=== PATIENT | male | born 1990 | race American Indian/Alaskan Native ===

== ENCOUNTER 2017-12-05 18:02 | Emergency (ER) | payer MEDICAID ==
[2017-12-05 18:08] VITALS: BP 119/69; PULSE 102; RESP 16; O2SAT 98
[2017-12-05] MEDS ORDERED: Sodium Chloride 0.9% 1,000 ML IV STA (18:43)
--- NOTE | 2017-12-05 19:15 | ED PDOC ---
HPI: Abdomen Time Seen by Provider: 12/05/17 18:30 Chief Complaint (Nursing): Abdominal Pain Chief Complaint (Provider): Abdominal Pain History Per: Patient History/Exam Limitations: no limitations Onset/Duration Of Symptoms: Hrs (x3) Additional Complaint(s): Patient is a 27 y/o male who presents to the ED for evaluation of intermittent abdominal pain with associated non bloody non bilious vomiting since 17:00. Patient states he has a history of abdominal hernia and is unsure if the symptoms are related. Patient is also complaining of upper back pain that has been worsening throughout the week. He denies fall, trauma, fever, chills, diarrhea, urinary symptoms, weakness, numbness, cough, shortness of breath, or saddle anesthesia. He denies taking meds prior to arrival. PMD: None Past Medical History Reviewed: Historical Data, Nursing Documentation, Vital Signs Vital Signs: Last Vital Signs Temp 98.0 F 12/05/17 18:05 Pulse 102 H 12/05/17 18:05 Resp 16 12/05/17 18:05 BP 119/69 12/05/17 18:05 Pulse Ox 98 12/05/17 18:05 - Medical History PMH: Asthma - Surgical History Other surgeries: ORIF of right hand - Family History Family History: States: Unknown Family Hx - Social History Current smoker - smoking cessation education provided: Yes (5 cigs per day) Alcohol: None Drugs: Denies - Home Medications Home Medications: Ambulatory Orders Medication Instructions Recorded Dicyclomine [Bentyl] 20 mg PO TID PRN #21 tab 12/06/17 Ondansetron ODT [Zofran ODT] 4 mg PO Q8 PRN #10 odt 12/06/17 - Allergies Allergies/Adverse Reactions: Allergies Allergy/AdvReac Type Severity Reaction Status Date / Time chocolate flavor Allergy RASH Verified 12/05/17 23:08 mushroom Allergy RASH Verified 12/05/17 23:08 onion Allergy RASH Verified 12/05/17 23:08 PORK Allergy RASH Verified 12/05/17 23:08 bee stings Allergy SWELLING Uncoded 12/05/17 23:08 red beans Allergy RASH Uncoded 12/05/17 23:08 Review of Systems ROS Statement: Except As Marked, All Systems Reviewed And Found Negative Constitutional: Negative for: Fever, Chills Respiratory: Negative for: Cough, Shortness of Breath Gastrointestinal: Positive for: Vomiting, Abdominal Pain. Negative for: Diarrhea Genitourinary Male: Negative for: Dysuria, Frequency, Incontinence Musculoskeletal: Positive for: Back Pain Neurological: Negative for: Weakness, Numbness Physical Exam - Reviewed Nursing Documentation Reviewed: Yes Vital Signs Reviewed: Yes - Physical Exam Comments: GENERAL APPEARANCE: Patient is awake, alert, oriented x 3, is resting comfortably and in no distress. SKIN: Warm, dry; (-) cyanosis. EYES: (-) conjunctival pallor, (-) scleral icterus. ENMT: Mucous membranes moist. Airway patent, (-) stridor. NECK: Supple, FROM CHEST AND RESPIRATORY: (-) rales, (-) rhonchi, (-) wheezes; breath sounds equal bilaterally. Respirations nonlabored. HEART AND CARDIOVASCULAR: (-) irregularity ABDOMEN AND GI: Soft (-) distention. Bowel sounds active x4; (+) tenderness in RUQ, LUQ, and epigastrium. (-) guarding, (-) rebound, (-) palpable masses, (-) CVA tenderness. BACK: (+) bilateral parathoracic tenderness. (-) midline tenderness. EXTREMITIES: (-) deformity, (-) edema NEURO AND PSYCH: Mental status as above; (-) focal findings (-) facial asymmetry (-) aphasia. Gait: steady. Speech: clear. - ECG O2 Sat by Pulse Oximetry: 98 (RA) Pulse Ox Interpretation: Normal Medical Decision Making Medical Decision Making: Time: 18:32 Impression: Abdominal pain, back pain, nausea and vomiting. Plan: --IV --IVF --CBC --CMP --Lipase --Toradol IVP --Pepcid IVP --Zofran IVP --Re-evaluation 1909 Patient requesting to sign out AMA to make curfew for care home. Patient declining all tests at this time and states he will come back tomorrow morning. Patient signed AMA forms and exited ED with steady gait. Patient AAOx3 upon AMA discharge with full mental capacity to make medical decisions. This patient is choosing to leave against medical advice. The EP has personally explained to the pt that choosing to do so may result in permanent bodily harm or . The EP discussed at great length that without further evaluation and monitoring there may be un foreseen circumstances and/or deterioration causing permanent bodily harm or as a result of their choice. The pt verbalized these risks back to the physician in laymans terms. The pt is alert, oriented, and shows the mental capacity to make clear decisions regarding the pts health care at this time. The pt continues to wish to leave against medical advice. In light of the pts decision to leave AMA, the pt is aware of the importance of following up as instructed. The pt has been advised that they should return to the ED immediately if they change their mind at any time, or if their condition begins to change or worsen in any way. ----- Scribe Attestation: Documented by Rambo Franklin, acting as a scribe for Mela Dow PA-C. Provider Scribe Attestation: All medical record entries made by the Scribe were at my direction and personally dictated by me. I have reviewed the chart and agree that the record accurately reflects my personal performance of the history, physical exam, medical decision making, and the department course for this patient. I have also personally directed, reviewed, and agree with the discharge instructions and disposition. Disposition - Clinical Impression Clinical Impression: Abdominal pain, Back pain, Vomiting, Left against medical advice - Patient ED Disposition Is Patient to be Admitted: No - Disposition Referrals: [facility] [Outside] Disposition: Against Medical Advice Disposition Time: 19:10 Condition: UNKNOWN Additional Instructions: The emergency medical care you received today was directed at your acute symptoms. If you were prescribed any medication, please fill it and take as dire cted. It may take several days for your symptoms to resolve. Return to the Emergency Department if your symptoms worsen, do not improve, or if you have any other problems. Please contact your doctor in 2 days for re-evaluation and follow up / or call one of the physicians/clinics you have been referred to that are listed on the Patient Visit Information form that is included in your discharge packet. Bring any paperwork you were given at discharge with you along with any medications you are taking to your follow up visit. Our treatment cannot replace ongoing medical care by a primary care provider (PCP) outside of the emergency department. Instructions: Acute Abdomen (Belly Pain), Upper Back Pain, Nausea and Vomiting, Adult, Leaving Against Medical Advice Forms: [facility] (Surinamese) Print Language: ITALIAN
[2017-12-05 20:02] VITALS: TEMP 98
== END 2017-12-05 19:10 | disposition left against medical advice (07) ==
LOC: H.ER 18:02
DX: R10.9 Unspecified abdominal pain (principal); M54.9 Dorsalgia, unspecified; R11.10 Vomiting, unspecified

== ENCOUNTER 2017-12-05 22:56 | Emergency (ER) | payer MEDICAID ==
[2017-12-06] MEDS ORDERED: Sodium Chloride 0.9% 1,000 ML IV STA (00:15)
[2017-12-06] MEDS ORDERED: Iohexol 240 (50 ml) PO ONE (00:15)
--- NOTE | 2017-12-06 00:20 | ED PDOC ---
Addendum entered and electronically signed by Mela Dow RPA-C 12/08/17 13:54: Addendum Addendum: 12/08/17 13:53 Patient reached at [facility] . Patient advised to return to ED for further evaluation. Addendum entered and electronically signed by Mela Dow RPA-C 12/08/17 13:13: Addendum Addendum: 12/08/17 13:[address] read: Date of service: 12/06/2017 PROCEDURE: CT Abdomen and Pelvis with contrast HISTORY: left lower abdominal pain COMPARISON: None. TECHNIQUE: Contrast dose: 90 mL Omnipaque 300 Radiation dose: Total exam DLP = 200.6 mGy-cm. This CT exam was performed using one or more of the following dose reduction techniques: Automated exposure control, adjustment of the mA and/or kV according to patient size, and/or use of iterative reconstruction technique. FINDINGS: LOWER THORAX: Unremarkable. LIVER: Diffuse hepatic steatosis. No gross lesion or ductal dilatation. GALLBLADDER AND BILE DUCTS: Unremarkable. PANCREAS: Unremarkable. No gross lesion or ductal dilatation. SPLEEN: Unremarkable. ADRENALS: Unremarkable. No mass. KIDNEYS AND URETERS: Unremarkable. No hydronephrosis. No solid mass. VASCULATURE: Acute angle of the SMA relative to the aorta. Prominent left renal vein with collateral drainage via lumbar veins. No aortic aneurysm. BOWEL: Markedly dilated 2nd portion of the duodenum measuring 5.1 cm in diameter. No obstruction. No gross mural thickening. APPENDIX: Normal appendix. PERITONEUM: Unremarkable. No free fluid. No free air. LYMPH NODES: Unremarkable. No enlarged lymph nodes. BLADDER: Unremarkable. REPRODUCTIVE: Unremarkable. BONES: No acute fracture. OTHER FINDINGS: None. IMPRESSION: Markedly dilated 2nd portion of duodenum measuring 5.1 cm with extrinsic compression on the 3rd part of the duodenum secondary to narrow angle between the SMA and aorta. 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 Prominent left renal vein with collateral drainage via lumbar veins, likely also related to narrow angle between the SMA and aorta. These findings were not conveyed on the preliminary interpretation by [facility]. ER notification submitted electronically. Patient with no contact number in system. Letter will be sent to address on file however in previous ED visit patient states he was homeless, so address may be invalid. Original Note: HPI: Abdomen Time Seen by Provider: 12/06/17 00:00 Chief Complaint (Nursing): Abdominal Pain Chief Complaint (Provider): abdominal pain History Per: Patient History/Exam Limitations: no limitations Onset/Duration Of Symptoms: Days (1) Current Symptoms Are (Timing): Still Present Location Of Pain/Discomfort: LLQ Associated Symptoms: Nausea, Vomiting Additional Complaint(s): 27 y/o male presents for evaluation of left lower abdominal pain x 1 day. Associated multiple episodes of nonbilious, nonbloody vomiting. Denies fever, cough, chest pain, shortness of breath, palpitations, changes in bowel movements, urinary symptoms, testicular pain/swelling. Past Medical History Reviewed: Historical Data, Nursing Documentation, Vital Signs Vital Signs: Last Vital Signs Temp 98 F 12/05/17 23:08 Pulse 78 12/05/17 23:08 Resp 16 12/05/17 23:08 BP 122/77 12/05/17 23:08 Pulse Ox 97 12/05/17 23:08 - Medical History PMH: Asthma - Family History Family History: States: No Known Family Hx - Living Arrangements Living Arrangements: Alone (homeless) - Home Medications Home Medications: Ambulatory Orders Medication Instructions Recorded Dicyclomine [Bentyl] 20 mg PO TID PRN #21 tab 12/06/17 Ondansetron ODT [Zofran ODT] 4 mg PO Q8 PRN #10 odt 12/06/17 - Allergies Allergies/Adverse Reactions: Allergies Allergy/AdvReac Type Severity Reaction Status Date / Time chocolate flavor Allergy RASH Verified 12/05/17 23:08 mushroom Allergy RASH Verified 12/05/17 23:08 onion Allergy RASH Verified 12/05/17 23:08 PORK Allergy RASH Verified 12/05/17 23:08 bee stings Allergy SWELLING Uncoded 12/05/17 23:08 red beans Allergy RASH Uncoded 12/05/17 23:08 Review of Systems ROS Statement: Except As Marked, All Systems Reviewed And Found Negative Gastrointestinal: Positive for: Nausea, Vomiting, Abdominal Pain Musculoskeletal: Positive for: Shoulder Pain Physical Exam - Reviewed Nursing Documentation Reviewed: Yes Vital Signs Reviewed: Yes - Physical Exam Appears: Positive for: Well, Non-toxic, No Acute Distress Head Exam: Positive for: ATRAUMATIC, NORMAL INSPECTION, NORMOCEPHALIC Skin: Positive for: Normal Color Eye Exam: Positive for: Normal appearance ENT: Positive for: Normal ENT Inspection Cardiovascular/Chest: Positive for: Regular Rate, Rhythm Respiratory: Positive for: Normal Breath Sounds Gastrointestinal/Abdominal: Positive for: Bowel Sounds, Soft, Tenderness (LLQ) Back: Positive for: Normal Inspection Extremity: Positive for: Normal ROM, Capillary Refill (<2 sec b/l UE). Negative for: Tenderness, Deformity, Swelling Neurologic/Psych: Positive for: Alert, Oriented (x3) - Laboratory Results Result Diagrams: 12/06/17 00:39 12/06/17 00:39 - ECG O2 Sat by Pulse Oximetry: 97 - Progress ED Course And Treament: labs, urine, CT abd/pelvis, IV toradol, IV fluids, IV zofran USArad impression: mild apparent thicking of the sigmoid colon. Underdistenti on, spasm, versus mild colitis On re-eval, patient sleeping; upon awakening states he is feeling better. Tolerated PO Patient educated on findings, discharged with rx monica alexisyl Advised follow up PMD 2-3 days Return precautions given Patient demonstrates full understanding of discharge instructions Patient requires no further intervention in the ED and is stable for discharge at this time Disposition - Clinical Impression Clinical Impression: Abdominal pain - Patient ED Disposition Is Patient to be Admitted: No - Disposition Referrals: [facility] [Outside] Disposition: Routine/Home Disposition Time: 03:33 Condition: IMPROVED Prescriptions: Dicyclomine [Bentyl] 20 mg PO TID PRN #21 tab PRN Reason: Pain, Mild (1-3) Ondansetron ODT [Zofran ODT] 4 mg PO Q8 PRN #10 odt PRN Reason: Nausea/Vomiting Instructions: Acute Abdomen (Belly Pain)
[2017-12-06] MEDS ORDERED: Iohexol 240 (50 ml) ONE (00:24)
[2017-12-06 00:41] LABS: BASO # 0.1 K/uL (0.0-0.2); BASO % 1.3 % (0.0-2.0); EOS # 0.2 K/uL (0.0-0.7); EOS % 3.7 % (0.0-4.0); HEMOGLOBIN 13.7 g/dL (12.0-18.0); LYMPH # 2.8 K/uL (1.0-4.3); LYMPH % 49.6 % (20.0-40.0); MEAN CELL VOLUME 92.8 fl (80.0-94.0); MEAN CORPUSCULAR HEMOGLOBIN 31.9 pg (27.0-31.0); MEAN CORPUSCULAR HGB CONC 34.4 g/dL (33.0-37.0); MEAN PLATELET VOLUME 9.4 fl (7.2-11.7); MONO # 0.5 K/uL (0.0-0.8); MONO % 8.6 % (0.0-10.0); NEUT # 2.1 K/uL (1.8-7.0); NEUT % 36.8 % (50.0-75.0); NRBC % 0.2 % (0.0-0.0); RBC 4.31 Mil/uL (4.40-5.90); RED CELL DISTRIBUTION WIDTH 13.7 % (11.5-14.5); WHITE BLOOD COUNT 5.6 K/uL (4.8-10.8)
[2017-12-06 00:52] LABS: ALB/GLOB RATIO 1.3 (1.0-2.1); ALBUMIN 4.3 g/dL (3.5-5.0); ALT/SGPT 25 U/L (21-72); AST/SGOT 25 U/L (17-59); BLOOD UREA NITROGEN 11 mg/dl (9-20); CALCIUM 9.7 mg/dL (8.4-10.2); GFR NON-AFRICAN AMERICAN > 60
[2017-12-06] MEDS ORDERED: Iohexol 300 100 ML IJ ONE (02:46)
[2017-12-06] MEDS ORDERED: Sodium Chloride 0.9% 50 ML IV ONE (02:46)
[2017-12-06 04:02] LABS: BARBITURATES, UR NEGATIVE (NEGATIVE); BENZODIAZEPINES, UR NEGATIVE (NEGATIVE); OPIATES, UR NEGATIVE (NEGATIVE); PHENCYCLIDINE, UR NEGATIVE (NEGATIVE)
[2017-12-06 04:04] LABS: SQUAMOUS EPITHIAL < 1 /hpf (0-5); URINE BACTERIA RARE (<OCC); URINE BILIRUBIN NEGATIVE (NEGATIVE); URINE BLOOD NEGATIVE (NEGATIVE); URINE CLARITY SLIGHTY-CLOUDY (Clear); URINE COLOR YELLOW (YELLOW); URINE GLUCOSE (UA) NEG (Normal); URINE LEUKOCYTE ESTERASE NEG Leu/uL (Negative); URINE PROTEIN 30 mg/dL (NEGATIVE)
[2017-12-06 04:18] VITALS: BP 128/74; PULSE 69; RESP 17; TEMP 97.8; O2SAT 98
--- NOTE | 2017-12-06 10:45 | CT ---
Date of service: 12/06/2017 PROCEDURE: CT Abdomen and Pelvis with contrast HISTORY: left lower abdominal pain COMPARISON: None. TECHNIQUE: Contrast dose: 90 mL Omnipaque 300 Radiation dose: Total exam DLP = 200.6 mGy-cm. This CT exam was performed using one or more of the following dose reduction techniques: Automated exposure control, adjustment of the mA and/or kV according to patient size, and/or use of iterative reconstruction technique. FINDINGS: LOWER THORAX: Unremarkable. LIVER: Diffuse hepatic steatosis. No gross lesion or ductal dilatation. GALLBLADDER AND BILE DUCTS: Unremarkable. PANCREAS: Unremarkable. No gross lesion or ductal dilatation. SPLEEN: Unremarkable. ADRENALS: Unremarkable. No mass. KIDNEYS AND URETERS: Unremarkable. No hydronephrosis. No solid mass. VASCULATURE: Acute angle of the SMA relative to the aorta. Prominent left renal vein with collateral drainage via lumbar veins. No aortic aneurysm. BOWEL: Markedly dilated 2nd portion of the duodenum measuring 5.1 cm in diameter. No obstruction. No gross mural thickening. APPENDIX: Normal appendix. PERITONEUM: Unremarkable. No free fluid. No free air. LYMPH NODES: Unremarkable. No enlarged lymph nodes. BLADDER: Unremarkable. REPRODUCTIVE: Unremarkable. BONES: No acute fracture. OTHER FINDINGS: None. IMPRESSION: Markedly dilated 2nd portion of duodenum measuring 5.1 cm with extrinsic compression on the 3rd part of the duodenum secondary to narrow angle between the SMA and aorta. 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 Prominent left renal vein with collateral drainage via lumbar veins, likely also related to narrow angle between the SMA and aorta. These findings were not conveyed on the preliminary interpretation by [facility]. ER notification submitted electronically.
== END 2017-12-06 03:49 | disposition home or self-care (01) ==
LOC: H.ER 22:56
DX: R10.32 Left lower quadrant pain (principal); R11.2 Nausea with vomiting, unspecified
CPT/HCPCS: 74177; 80053; 80324; 80345; 80346; 80349; 80353; 80358; 80361; 81003; 83992; 85025; 96360; 99283; J1885; J2405; J7030; Q9966; Q9967

== ENCOUNTER 2017-12-09 09:49 | Emergency (ER) | payer MEDICAID ==
[2017-12-09 09:59] VITALS: O2SAT 100
[2017-12-09 10:00] VITALS: BMI 17.4
--- NOTE | 2017-12-09 10:25 | ED PDOC ---
HPI: Abdomen Chief Complaint (Provider): ABdominal pain History Per: Patient Additional Complaint(s): Pt is a 27 yo male, no PMH, presents to the ED after receiving a callback. Pt was seen and evaluated here in the ED on 12/05/17 for abdominal pain. Pt at this time reports pain continues, no nausea, vomiting, diarrhea or constipation, no fever or chills. Official CT was read as:12/08/17 13:[address] read: Date of service: 12/06/2017 PROCEDURE: CT Abdomen and Pelvis with contrast HISTORY: left lower abdominal pain COMPARISON: None. TECHNIQUE: Contrast dose: 90 mL Omnipaque 300 Radiation dose: Total exam DLP = 200.6 mGy-cm. This CT exam was performed using one or more of the following dose reduction techniques: Automated exposure control, adjustment of the mA and/or kV according to patient size, and/or use of iterative reconstruction technique. FINDINGS: LOWER THORAX: Unremarkable. LIVER: Diffuse hepatic steatosis. No gross lesion or ductal dilatation. GALLBLADDER AND BILE DUCTS: Unremarkable. PANCREAS: Unremarkable. No gross lesion or ductal dilatation. SPLEEN: Unremarkable. ADRENALS: Unremarkable. No mass. KIDNEYS AND URETERS: Unremarkable. No hydronephrosis. No solid mass. VASCULATURE: Acute angle of the SMA relative to the aorta. Prominent left renal vein with collateral drainage via lumbar veins. No aortic aneurysm. BOWEL: Markedly dilated 2nd portion of the duodenum measuring 5.1 cm in diameter. No obstruction. No gross mural thickening. APPENDIX: Normal appendix. PERITONEUM: Unremarkable. No free fluid. No free air. LYMPH NODES: Unremarkable. No enlarged lymph nodes. BLADDER: Unremarkable. REPRODUCTIVE: Unremarkable. BONES: No acute fracture. OTHER FINDINGS: None. IMPRESSION: Markedly dilated 2nd portion of duodenum measuring 5.1 cm with extrinsic compression on the 3rd part of the duodenum secondary to narrow angle between the SMA and aorta. 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 Prominent left renal vein with collateral drainage via lumbar veins, likely also related to narrow angle between the SMA and aorta. These findings were not conveyed on the preliminary interpretation by [facility]. ER notification submitted electronically. <Natalie Layne - Last Filed: 12/09/17 16:53> <Alfonso Sommers III - Last Filed: 12/11/17 13:58> Time Seen by Provider: 12/09/17 09:59 Chief Complaint (Nursing): Abdominal Pain Supervising Attending Note - Attestation: I have reviewed all pertinent clinical information: Yes <Alfonso Sommers III - Last Filed: 12/11/17 13:58> Past Medical History Reviewed: Nursing Documentation, Vital Signs Vital Signs: Last Vital Signs Temp 97.9 F 12/09/17 09:58 Pulse 70 12/09/17 09:58 Resp 18 12/09/17 09:58 BP 155/72 H 12/09/17 09:58 Pulse Ox 100 12/09/17 09:58 - Medical History PMH: Asthma, Fractures (Right hand) - Surgical History Surgical History: No Surg Hx - Family History Family History: States: No Known Family Hx - Living Arrangements Living Arrangements: Other - Social History Current smoker - smoking cessation education provided: No Alcohol: None Drugs: Cannabis <Petronella,Natalie A - Last Filed: 12/09/17 16:53> Vital Signs: Last Vital Signs Temp 98.4 F 12/09/17 16:39 Pulse 60 12/09/17 16:39 Resp 14 12/09/17 16:39 BP 113/78 12/09/17 16:39 Pulse Ox 100 12/09/17 16:57 <Alfonso Sommers III - Last Filed: 12/11/17 13:58> - Home Medications Home Medications: Ambulatory Orders Medication Instructions Recorded Dicyclomine [Bentyl] 20 mg PO TID PRN #21 tab 12/06/17 Ondansetron ODT [Zofran ODT] 4 mg PO Q8 PRN #10 odt 12/06/17 Dicyclomine [Bentyl] 10 mg PO QID PRN #10 cap 12/09/17 - Allergies Allergies/Adverse Reactions: Allergies Allergy/AdvReac Type Severity Reaction Status Date / Time chocolate flavor Allergy RASH Verified 12/05/17 23:08 mushroom Allergy RASH Verified 12/05/17 23:08 onion Allergy RASH Verified 12/05/17 23:08 PORK Allergy RASH Verified 12/05/17 23:08 bee stings Allergy SWELLING Uncoded 12/05/17 23:08 red beans Allergy RASH Uncoded 12/05/17 23:08 Review of Systems ROS Statement: Except As Marked, All Systems Reviewed And Found Negative Gastrointestinal: Positive for: Abdominal Pain <Petronella,Natalie A - Last Filed: 12/09/17 16:53> Physical Exam - Reviewed Nursing Documentation Reviewed: Yes Vital Signs Reviewed: Yes - Physical Exam Appears: Positive for: Well, Non-toxic, No Acute Distress Head Exam: Positive for: ATRAUMATIC, NORMAL INSPECTION, NORMOCEPHALIC Skin: Positive for: Normal Color, Warm, DRY Eye Exam: Positive for: EOMI, Normal appearance, PERRL ENT: Positive for: Normal ENT Inspection Neck: Positive for: Normal, Painless ROM Cardiovascular/Chest: Positive for: Regular Rate, Rhythm Respiratory: Positive for: CNT, Normal Breath Sounds Gastrointestinal/Abdominal: Positive for: Normal Exam, Soft Back: Positive for: Normal Inspection Extremity: Positive for: Normal ROM Neurologic/Psych: Positive for: Alert, Oriented <Natalie Layne Last Filed: 12/09/17 16:53> - Laboratory Results Result Diagrams: 12/09/17 11:09 12/09/17 11:09 - ECG O2 Sat by Pulse Oximetry: 100 <Natalie Layne Last Filed: 12/09/17 16:53> - Laboratory Results Result Diagrams: 12/09/17 11:09 12/09/17 11:09 <Alfonso Sommers III - Last Filed: 12/11/17 13:58> Medical Decision Making Medical Decision Making: IV access established and Pts Pain controlled with zofran and morphine diagnostics reviewed with Pt case d/w GI fellow Dr. Bryan, who advised surgical consult at this time residential sales associate presented to see and evaluate Pt at bedside. Advised pt stable for outpt follow up with GI at this time. Pt doing well on re-eval, stable for discharge at this time <Natalie Layne Last Filed: 12/09/17 16:53> Disposition - Patient ED Disposition Is Patient to be Admitted: No - Disposition Disposition: Routine/Home Disposition Time: 16:57 <Natalie Layne Last Filed: 12/09/17 16:53> <Alfonso Sommers III - Last Filed: 12/11/17 13:58> - Clinical Impression Clinical Impression: Abdominal pain, Shoulder pain - Disposition Referrals: Alfonso Palomo MD, PhD [Staff Provider] - [facility] [Outside] Condition: STABLE Prescriptions: Dicyclomine [Bentyl] 10 mg PO QID PRN #10 cap PRN Reason: Pain, Mild (1-3) Instructions: Acute Abdomen (Belly Pain), Adult (DC), Shoulder Pain (DC) Forms: [employer] [facility] (Mongolian)
[2017-12-09 11:17] LABS: HEMOGLOBIN 13.8 g/dL (12.0-18.0); MEAN CELL VOLUME 93.3 fl (80.0-94.0); RBC 4.36 Mil/uL (4.40-5.90)
[2017-12-09 11:18] LABS: BASO % 1.1 % (0.0-2.0); EOS # 0.3 K/uL (0.0-0.7); EOS % 6.3 % (0.0-4.0); LYMPH # 2.2 K/uL (1.0-4.3); MEAN CORPUSCULAR HEMOGLOBIN 31.6 pg (27.0-31.0); MEAN CORPUSCULAR HGB CONC 33.8 g/dL (33.0-37.0); MEAN PLATELET VOLUME 9.9 fl (7.2-11.7); MONO # 0.4 K/uL (0.0-0.8); MONO % 9.3 % (0.0-10.0); NEUT # 1.2 K/uL (1.8-7.0); NEUT % 29.3 % (50.0-75.0); NRBC % 0.3 % (0.0-0.0); RED CELL DISTRIBUTION WIDTH 13.8 % (11.5-14.5)
[2017-12-09 11:35] LABS: URINE BILIRUBIN NEGATIVE (NEGATIVE); URINE BLOOD NEGATIVE (NEGATIVE); URINE CLARITY CLEAR (Clear); URINE COLOR STRAW (YELLOW); URINE GLUCOSE (UA) NEG (Normal); URINE LEUKOCYTE ESTERASE NEG Leu/uL (Negative); URINE PROTEIN NEGATIVE (NEGATIVE); URINE UROBILINOGEN 0.2-1.0 mg/dL (0.2-1.0)
[2017-12-09 11:39] LABS: ALB/GLOB RATIO 1.3 (1.0-2.1); ALBUMIN 4.1 g/dL (3.5-5.0); ALT/SGPT 24 U/L (21-72); AMYLASE 100 U/L (30-110); AST/SGOT 22 U/L (17-59); BLOOD UREA NITROGEN 9 mg/dl (9-20); CALCIUM 9.4 mg/dL (8.4-10.2); GFR NON-AFRICAN AMERICAN > 60; LIPASE 65 U/L (23-300)
[2017-12-09 12:16] LABS: BARBITURATES, UR NEGATIVE (NEGATIVE); BENZODIAZEPINES, UR NEGATIVE (NEGATIVE); OPIATES, UR NEGATIVE (NEGATIVE); PHENCYCLIDINE, UR NEGATIVE (NEGATIVE)
[2017-12-09 13:25] LABS: VENOUS BLOOD GAS BASE EXCESS 0.3 mmol/L (0.0-2.0); VENOUS BLOOD GAS PCO2 42 mmHg (40-60); VENOUS BLOOD GAS PO2 56 mm/Hg (30-55); VENOUS BLOOD PH 7.39 (7.32-7.43)
--- NOTE | 2017-12-09 16:43 | RAD ---
Date of service: 12/09/2017 PROCEDURE: CHEST RADIOGRAPH, 1 VIEW HISTORY: upper chest shoulder pain COMPARISON: None available. FINDINGS: LUNGS: Clear. PLEURA: No pneumothorax or pleural fluid seen. CARDIOVASCULAR: Normal. OSSEOUS STRUCTURES: No significant abnormalities. VISUALIZED UPPER ABDOMEN: Normal. OTHER FINDINGS: None. IMPRESSION: No active disease.
--- NOTE | 2017-12-09 16:44 | RAD ---
Date of service: 12/09/2017 PROCEDURE: Radiographs of the Left Shoulder HISTORY: upper shoulder pain COMPARISON: No prior. FINDINGS: BONES: No acute fracture. JOINTS: Unremarkable. SOFT TISSUES: Normal. OTHER FINDINGS: None. IMPRESSION: No demonstrated fracture or dislocation.
[2017-12-09 16:57] VITALS: BP 113/78; PULSE 60; RESP 14; TEMP 98.4
--- NOTE | 2017-12-09 17:42 | CP.PCM.CON ---
History of Present Illness - History of Present Illness History of Present Illness: General Surgery Consult Re: possible SMA syndrome HPI: 27 M presented to the ED today after a call back yesterday afternoon due to new read about CT findings of possible SMA syndrome. Pt initially seen and evaluated here in the ED on 12/05/17 for abdominal pain. Currently, his LLQ pain improved and did not completely resolve, however, he has had this issue since his appendix was removed. Now, he is more concerned about his L shoulder pain which is described as a 10/10 with movement. Denies nausea, vomiting, diarrhea or constipation, no fever or chills. PMH: Denies PSH: Lap appendectomy, R hand ORIF FH: unknown SH: Smokes tobacco, no EtOH, no drug use (per pt) last UDS screening showed +THC, Homeless All: Denies medication allergies Meds: Denies Review of Systems - Review of Systems All systems: reviewed and no additional remarkable complaints except (as per HPI) Past Patient History - Past Social History Alcohol: None Drugs: Cannabis - PULMONARY Hx Asthma: Yes - MUSCULOSKELETAL/RHEUMATOLOGICAL Hx Fractures: Yes (Right hand) - GASTROINTESTINAL Hx Gastrointestinal Disorders: Yes Other/Comment: Hx Left inguinal hernia - PSYCHIATRIC Hx Substance Use: Yes - SURGICAL HISTORY Hx Surgeries: Yes Hx Open Reduction Internal Fixation: Yes (Right hand) Other/Comment: hand surgery - ANESTHESIA Hx Anesthesia: Yes Hx Anesthesia Reactions: No Hx Malignant Hyperthermia: No Meds Home Medications: Home Medication List Medication Instructions Recorded Confirmed Type Dicyclomine [Bentyl] 10 mg PO QID PRN #10 cap 12/09/17 Rx Allergies/Adverse Reactions: Allergies Allergy/AdvReac Type Severity Reaction Status Date / Time chocolate flavor Allergy RASH Verified 12/05/17 23:08 mushroom Allergy RASH Verified 12/05/17 23:08 onion Allergy RASH Verified 12/05/17 23:08 PORK Allergy RASH Verified 12/05/17 23:08 bee stings Allergy SWELLING Uncoded 12/05/17 23:08 red beans Allergy RASH Uncoded 12/05/17 23:08 Physical Exam - Constitutional Appears: Non-toxic, No Acute Distress - Head Exam Head Exam: ATRAUMATIC, NORMOCEPHALIC - Eye Exam Eye Exam: EOMI. absent: Scleral icterus - ENT Exam ENT Exam: Mucous Membranes Moist Additional comments: trachea midline - Neck Exam Neck exam: Positive for: Full Rom. Negative for: Tenderness - Respiratory Exam Respiratory Exam: NORMAL BREATHING PATTERN. absent: Respiratory Distress - Cardiovascular Exam Cardiovascular Exam: RRR, +S1, +S2. absent: Bradycardia, Tachycardia - GI/Abdominal Exam GI & Abdominal Exam: Soft, Tenderness (in LLQ over scar from laparoscopic appendectomy). absent: Distended, Firm, Guarding, Hernia, Rigid - Rectal Exam Rectal Exam: Deferred - Extremities Exam Extremities exam: Negative for: calf tenderness, pedal edema Additional comments: L shoulder joint pain with active ROM - Back Exam Back exam: absent: CVA tenderness (L), CVA tenderness (R) - Neurological Exam Neurological exam: Alert, Oriented x3 - Skin Skin Exam: Dry, Warm Results - Vital Signs Recent Vital Signs: Last Vital Signs Temp 98.4 F 12/09/17 16:39 Pulse 60 12/09/17 16:39 Resp 14 12/09/17 16:39 BP 113/78 12/09/17 16:39 Pulse Ox 100 12/09/17 16:57 - Labs Result Diagrams: 12/09/17 11:09 12/09/17 11:09 Labs: Laboratory Results - last 24 hr 12/09/17 12/09/17 12/09/17 11:09 11:09 11:09 WBC 4.0 L RBC 4.36 L Hgb 13.8 Hct 40.7 MCV 93.3 MCH 31.6 H MCHC 33.8 RDW 13.8 Plt Count 121 L MPV 9.9 Neut % (Auto) 29.3 L Lymph % (Auto) 54.0 H Guthrie % (Auto) 9.3 Eos % (Auto) 6.3 H Baso % (Auto) 1.1 Neut # (Auto) 1.2 L Lymph # (Auto) 2.2 Guthrie # (Auto) 0.4 Eos # (Auto) 0.3 Baso # (Auto) 0.0 pO2 VBG pH VBG pCO2 VBG HCO3 VBG Total CO2 VBG O2 Sat (Calc) VBG Base Excess VBG Potassium Glucose Lactate FiO2 Sodium 142 Potassium 4.2 Chloride 108 H Carbon Dioxide 24 Anion Gap 14 BUN 9 Creatinine 0.9 Est GFR ( Amer) > 60 Est GFR (Non-Af Amer) > 60 Random Glucose 74 L Calcium 9.4 Total Bilirubin 0.6 AST 22 ALT 24 Alkaline Phosphatase 49 Total Protein 7.3 Albumin 4.1 Globulin 3.2 Albumin/Globulin Ratio 1.3 Amylase 100 Lipase 65 Venous Blood Potassium Urine Color Urine Clarity Urine pH Ur Specific Matthews Urine Protein Urine Glucose (UA) Urine Ketones Urine Blood Urine Nitrate Urine Bilirubin Urine Urobilinogen Ur Leukocyte Esterase Urine RBC (Auto) Urine Microscopic WBC Urine Opiates Screen Negative Urine Methadone Screen Negative Ur Barbiturates Screen Negative Ur Phencyclidine Scrn Negative Ur Amphetamines Screen Negative U Benzodiazepines Scrn Negative U Oth Cocaine Metabols Negative U Cannabinoids Screen Negative 12/09/17 12/09/17 11:10 13:04 WBC RBC Hgb Hct MCV MCH MCHC RDW Plt Count MPV Neut % (Auto) Lymph % (Auto) Guthrie % (Auto) Eos % (Auto) Baso % (Auto) Neut # (Auto) Lymph # (Auto) Guthrie # (Auto) Eos # (Auto) Baso # (Auto) pO2 56 H VBG pH 7.39 VBG pCO2 42 VBG HCO3 24.9 VBG Total CO2 26.7 VBG O2 Sat (Calc) 93.5 H VBG Base Excess 0.3 VBG Potassium 4.1 Glucose 84 Lactate 0.8 FiO2 21.0 Sodium 137.0 Potassium Chloride 106.0 Carbon Dioxide Anion Gap BUN Creatinine Est GFR ( Amer) Est GFR (Non-Af Amer) Random Glucose Calcium Total Bilirubin AST ALT Alkaline Phosphatase Total Protein Albumin Globulin Albumin/Globulin Ratio Amylase Lipase Venous Blood Potassium 4.1 Urine Color Straw Urine Clarity Clear Urine pH 8.0 Ur Specific Matthews 1.006 Urine Protein Negative Urine Glucose (UA) Neg Urine Ketones Negative Urine Blood Negative Urine Nitrate Negative Urine Bilirubin Negative Urine Urobilinogen 0.2-1.0 Ur Leukocyte Esterase Neg Urine RBC (Auto) < 1 Urine Microscopic WBC < 1 Urine Opiates Screen Urine Methadone Screen Ur Barbiturates Screen Ur Phencyclidine Scrn Ur Amphetamines Screen U Benzodiazepines Scrn U Oth Cocaine Metabols U Cannabinoids Screen - Imaging and Cardiology CT scan - abdomen Status: Image reviewed by me, Report reviewed by me Assessment & Plan - Assessment and Plan (Free Text) Assessment: 27M with Hx of abdominal pain in LLQ Plan: No signs of sepsis or acute bowel issues, Pt complaining most about his L shoulder pain. No surgical intervention required at this time, will need outpatient GI workup for question of SMA syndrome Pt not interested in surgical options at this time. D/W Dr. Irvin Johnston PGY4
== END 2017-12-09 16:39 | disposition home or self-care (01) ==
LOC: H.ER 09:49
DX: R10.9 Unspecified abdominal pain (principal); M25.512 Pain in left shoulder
CPT/HCPCS: 71045; 73030; 80053; 80324; 80345; 80346; 80349; 80353; 80358; 80361; 81003; 82150; 82803; 83690; 83992; 85025; 96374; 96375; 96376; 99283; J2270; J2405

== ENCOUNTER 2018-01-10 18:15 | Emergency (ER) | payer MEDICAID ==
[2018-01-10 18:15] VITALS: BMI 17.4
[2018-01-10 18:29] VITALS: RESP 18; TEMP 97.9; O2SAT 99
--- NOTE | 2018-01-10 18:56 | ED PDOC ---
HPI: Chest Pain Time Seen by Provider: 01/10/18 18:46 Chief Complaint (Nursing): Chest Pain History Per: Patient Onset/Duration Of Symptoms: Other (Few weeks) Current Symptoms Are (Timing): Intermittent Episodes Severity: Mild Quality: Sharp Exacerbating Factors: Movement, Deep Breathing Additional Complaint(s): Sharp intermittent chest pain over past few weeks. Worse on movement and deep inspiration. Denies cough or SOB. Referred by PMD due to abnormal EKG. Past Medical History Vital Signs: Last Vital Signs Temp 97.9 F 01/10/18 18:24 Pulse 77 01/10/18 18:24 Resp 18 01/10/18 18:24 BP 111/66 01/10/18 18:24 Pulse Ox 99 01/10/18 18:24 - Medical History PMH: Asthma, Fractures (Right hand) - Family History Family History: States: Unknown Family Hx - Home Medications Home Medications: Ambulatory Orders Medication Instructions Recorded Dicyclomine [Bentyl] 20 mg PO TID PRN #21 tab 12/06/17 Ondansetron ODT [Zofran ODT] 4 mg PO Q8 PRN #10 odt 12/06/17 Dicyclomine [Bentyl] 10 mg PO QID PRN #10 cap 12/09/17 Naproxen [Naprosyn] 500 mg PO Q12H #20 tab 01/10/18 - Allergies Allergies/Adverse Reactions: Allergies Allergy/AdvReac Type Severity Reaction Status Date / Time chocolate flavor Allergy RASH Verified 01/10/18 18:24 mushroom Allergy RASH Verified 01/10/18 18:24 onion Allergy RASH Verified 01/10/18 18:24 PORK Allergy RASH Verified 01/10/18 18:24 bee stings Allergy SWELLING Uncoded 01/10/18 18:24 red beans Allergy RASH Uncoded 01/10/18 18:24 Review of Systems ROS Statement: Except As Marked, All Systems Reviewed And Found Negative Cardiovascular: Positive for: Chest Pain Physical Exam - Reviewed Nursing Documentation Reviewed: Yes Vital Signs Reviewed: Yes - Physical Exam Appears: Positive for: Non-toxic, No Acute Distress Head Exam: Positive for: ATRAUMATIC, NORMAL INSPECTION, NORMOCEPHALIC Skin: Positive for: Normal Color, Warm, DRY Eye Exam: Positive for: EOMI, Normal appearance, PERRL ENT: Positive for: Normal ENT Inspection Neck: Positive for: Normal, Painless ROM Cardiovascular/Chest: Positive for: Regular Rate, Rhythm Respiratory: Positive for: CNT, Normal Breath Sounds Gastrointestinal/Abdominal: Positive for: Normal Exam, Soft Back: Positive for: Normal Inspection Extremity: Positive for: Normal ROM Neurologic/Psych: Positive for: Alert, Oriented - Laboratory Results Result Diagrams: 01/10/18 19:10 01/10/18 19:10 - ECG O2 Sat by Pulse Oximetry: 99 Disposition - Clinical Impression Clinical Impression: Pleuritic chest pain - Patient ED Disposition Is Patient to be Admitted: No Counseled Patient/Family Regarding: Studies Performed, Diagnosis, Need For Followup, Rx Given - Disposition Referrals: [facility] [Outside] Disposition: Routine/Home Disposition Time: 20:42 Condition: FAIR Prescriptions: Naproxen [Naprosyn] 500 mg PO Q12H #20 tab Instructions: Pleuritic Chest Pain Forms: [facility] (Slovenian)
[2018-01-10 19:29] LABS: BASO % 0.9 % (0.0-2.0); EOS # 0.2 K/uL (0.0-0.7); HEMOGLOBIN 12.8 g/dL (12.0-18.0); MEAN CELL VOLUME 94.1 fl (80.0-94.0); MEAN CORPUSCULAR HEMOGLOBIN 31.2 pg (27.0-31.0); MEAN CORPUSCULAR HGB CONC 33.2 g/dL (33.0-37.0); MEAN PLATELET VOLUME 10.5 fl (7.2-11.7); MONO # 0.3 K/uL (0.0-0.8); MONO % 8.7 % (0.0-10.0); NEUT % 27.4 % (50.0-75.0); NRBC % 0.3 % (0.0-0.0); RBC 4.1 Mil/uL (4.40-5.90); RED CELL DISTRIBUTION WIDTH 13.4 % (11.5-14.5); WHITE BLOOD COUNT 3.5 K/uL (4.8-10.8)
[2018-01-10 19:31] LABS: BLOOD UREA NITROGEN 14 mg/dl (9-20); CALCIUM 8.8 mg/dL (8.4-10.2); GFR NON-AFRICAN AMERICAN > 60
[2018-01-10 19:36] LABS: ALB/GLOB RATIO 1.3 (1.0-2.1); ALBUMIN 4.4 g/dL (3.5-5.0); ALT/SGPT 15 U/L (21-72); AST/SGOT 36 U/L (17-59)
[2018-01-10 20:56] VITALS: BP 116/74; PULSE 59
--- NOTE | 2018-01-11 10:06 | RAD ---
Date of service: 01/10/2018 HISTORY: Chest pain COMPARISON: Frontal chest radiograph 12/09/2017. TECHNIQUE: Chest PA and lateral FINDINGS: LUNGS: No active pulmonary disease. PLEURA: No significant pleural effusion identified. No pneumothorax apparent. CARDIOVASCULAR: No aortic atherosclerotic calcification present. Normal cardiac size. No pulmonary vascular congestion. OSSEOUS STRUCTURES: No significant abnormalities. VISUALIZED UPPER ABDOMEN: Normal. OTHER FINDINGS: None. IMPRESSION: No interval acute cardiopulmonary disease appreciated.
== END 2018-01-10 20:55 | disposition home or self-care (01) ==
LOC: H.ER 18:15
DX: R07.1 Chest pain on breathing (principal)